=== PATIENT | female | born 1995 | race Caucasian/White ===

== ENCOUNTER → 2017-08-27 | Outpatient (CLI) | payer BC ==
[2017-08-27 19:37] LABS: BASO % 0.3 % (0.0-1.0); EOS # 0.1 10^3/uL (0.0-0.50); EOS % 1.1 % (0.0-3.0); IMMATURE GRANULOCYTE % 0.2 % (0-0); LYMPH # 1.6 10^3/uL (1.5-6.5); LYMPH % 17.8 % (24.0-44.0); MEAN CORPUSCULAR HEMOGLOBIN 29.4 pg (27.0-33.0); MEAN CORPUSCULAR HGB CONC 33.4 g/dl (32.0-36.5); MEAN CORPUSCULAR VOLUME 87.9 fl (80.0-96.0); MONO # 0.8 10^3/uL (0.0-0.8); MONO % 9.3 % (0.0-5.0); NEUTROPHILS # 6.3 10^3/uL (1.8-7.7); NEUTROPHILS % 71.3 % (36.0-66.0); PLATELET COUNT, AUTOMATED 281 10^3/uL (150-450); WHITE BLOOD COUNT 8.9 10^3/uL (4.0-10.0)
== END ==
LOC: M WUC 18:06
PROVIDERS: ATTEND Physician Assistant
DX: J02.9 Acute pharyngitis, unspecified (principal); R53.83 Other fatigue

== ENCOUNTER → 2017-10-31 | Outpatient (CLI) | payer BC ==
[~2017-10-31] MED LIST: NITR100C2 PO; PROM25TA PO; REGL10TA6 PO
[2017-10-31 18:00] LABS: BASO % 0.2 % (0.0-1.0); EOS % 0.1 % (0.0-3.0); IMMATURE GRANULOCYTE % 0.2 % (0-0); LYMPH % 10.9 % (24.0-44.0); MEAN CORPUSCULAR HEMOGLOBIN 30.2 pg (27.0-33.0); MEAN CORPUSCULAR HGB CONC 34.3 g/dl (32.0-36.5); MONO # 0.5 10^3/uL (0.0-0.8); NEUTROPHILS # 7.5 10^3/uL (1.8-7.7); NEUTROPHILS % 82.6 % (36.0-66.0); PLATELET COUNT, AUTOMATED 317 10^3/uL (150-450); RED CELL DISTRIBUTION WIDTH 11.9 % (11.5-14.5)
[2017-11-02 10:28] LABS: HBsAg Prenatal NEGATIVE (NEGATIVE)
== END ==
LOC: M SMT 14:08
PROVIDERS: ATTEND Advanced Practice Midwife
DX: Z34.81 Encounter for supervision of other normal pregnancy, first trimester (principal); Z3A.09 9 weeks gestation of pregnancy

== ENCOUNTER 2017-11-04 10:41 | Emergency (ER) | payer BC, OTHER ==
[~2017-11-04] VITALS: Ht 175.3 cm; Wt 88.6 kg
[2017-11-04] MEDS ORDERED: PROM25TA PO (10:51)
[2017-11-04] MEDS ORDERED: MULTIVITAMIN -ADULT INJECTION 10 ML, THIAMINE INJection 100 MG, FOLIC ACID 1 MG in NS 1... IV ONE (11:00)
[2017-11-04] MEDS ORDERED: NITR100C2 PO (13:16)
[2017-11-04] MEDS ORDERED: REGL10TA6 PO (13:16)
[2017-11-04 13:31] VITALS: BP 127/65
== END 2017-11-04 13:38 | disposition home or self-care (01) ==
LOC: M ED 10:41
DX: O23.40 Unspecified infection of urinary tract in pregnancy, unspecified trimester (principal); Z3A.00 Weeks of gestation of pregnancy not specified
CPT/HCPCS: 81001; 99284; J3411

== ENCOUNTER → 2017-11-29 | Outpatient (REF) | payer BC, OTHER | LOC: M LAB REF 14:04 | DX: Z34.82 Encounter for supervision of other normal pregnancy, second trimester (principal) | CPT/HCPCS: 87186 ==

== ENCOUNTER → 2017-12-28 | Outpatient (REF) | payer BC, OTHER | LOC: M LAB REF 12:55 | DX: Z34.82 Encounter for supervision of other normal pregnancy, second trimester (principal); Z36.89 Encounter for other specified antenatal screening | CPT/HCPCS: 87186 ==

== ENCOUNTER → 2018-01-07 | Outpatient (CLI) | payer BC, OTHER | LOC: M RAD 07:26 | DX: Z34.80 Encounter for supervision of other normal pregnancy, unspecified trimester (principal) ==

== ENCOUNTER → 2018-01-28 | Outpatient (REF) | payer OTHER | LOC: M LAB REF 16:58 | DX: Z34.82 Encounter for supervision of other normal pregnancy, second trimester (principal) ==

== ENCOUNTER → 2018-05-08 | Outpatient (REF) | payer OTHER | LOC: M LAB REF 13:05 | DX: Z34.83 Encounter for supervision of other normal pregnancy, third trimester (principal) ==

== ENCOUNTER 2018-05-31 15:43 | Inpatient (IN) | payer OTHER ==
[2018-05-31 16:52] LABS: HEMATOCRIT 36.2 % (36.0-47.0); HEMOGLOBIN 12.6 g/dl (12.0-15.5); MEAN CORPUSCULAR HEMOGLOBIN 29.4 pg (27.0-33.0); MEAN CORPUSCULAR HGB CONC 34.8 g/dl (32.0-36.5); MEAN CORPUSCULAR VOLUME 84.4 fl (80.0-96.0); PLATELET COUNT, AUTOMATED 264 10^3/uL (150-450); RED BLOOD COUNT 4.29 10^6/uL (4.00-5.40); RED CELL DISTRIBUTION WIDTH 12.3 % (11.5-14.5); WHITE BLOOD COUNT 10.1 10^3/uL (4.0-10.0)
[2018-05-31] MEDS: miSOPROStol 50 MCG 1/2 TAB (S0191) SL ×2 (16:55→21:06)
[2018-05-31 17:16] LABS: ALT/SGPT 16 U/L (12-78); AST/SGOT 13 U/L (7-37); BILIRUBIN,TOTAL 0.5 MG/DL (0.2-1.0); CREATININE FOR GFR 0.63 MG/DL (0.55-1.30); GLOMERULAR FILTRATION RATE > 60.0 (>60); LDH LACTATE DEHYDROGENASE 150 U/L (84-246); URIC ACID 5.7 MG/DL (2.6-6.0)
[2018-06-01] MEDS: miSOPROStol 50 MCG 1/2 TAB (S0191) SL ×2 (01:05→05:00)
[2018-06-01] MEDS ORDERED: PROMETHAZINE INJ 25 MG/ML VIAL (J2550) IM (11:30)
[2018-06-01] MEDS: BUTORPHANOL 2 MG/ML INJ (J0595) IV (11:55)
[2018-06-01] MEDS: LR 1,000 ML IV ×2 (11:56→19:22)
[2018-06-01] MEDS: OXYTOCIN DRIP 30 UNITS in APPROPRIATE DILUENT 1 EA IV (11:56)
[2018-06-01] MEDS: PROMETHAZINE INJ 25 MG/ML VIAL (J2550) IV (12:24)
[2018-06-01] MEDS ORDERED: FENTANYL 2MCG/ML ROPIVACAINE 0.2% IN 0.9% NACL 200ML IVBAG As Ordered (14:25)
[2018-06-01] MEDS ORDERED: PENICILLIN G POTASSIUM 5 MU VIAL As Ordered (14:28)
[2018-06-01] MEDS: PENICILLIN G POTASSIUM IV 5 MU in D5W MINI-BAG PLUS 100 ML IV (14:30)
[2018-06-01] MEDS ORDERED: ONDANSETRON 4MG/2ML VIAL (J2405) IV (14:55)
[2018-06-01] MEDS ORDERED: EPIDURAL COMMENT XX (14:55)
[2018-06-01] MEDS ORDERED: EPIDURAL/PCA KEYS XX (14:55)
[2018-06-01] MEDS ORDERED: NALOXONE INJ 0.4 MG/1 ML VIAL (J2310) IV (14:55)
[2018-06-01] MEDS ORDERED: REFRIGERATOR IV KEYS XX (14:55)
[2018-06-01] MEDS ORDERED: LACTATED RINGER'S 1000 ML IV (14:55)
[2018-06-01] MEDS: FENTANYL/ROPIVACAINE/NACL BAG 200 ML EPIDURAL (14:55)
[2018-06-01] MEDS ORDERED: ePHEDrine SULFATE 25 MG/5 ML(5MG/ML) SYRINGE IV (14:55)
[2018-06-01] MEDS ORDERED: diphenhydrAMINE INJ 50MG/ML VIAL (J1200) IV (14:55)
[2018-06-01] MEDS: PENICILLIN G POTASSIUM IV 2.5 MU in D5W 100 ML IV (18:42)
[2018-06-01] MEDS: PENICILLIN G POTASSIUM IV 2.5 MU in APPROPRIATE DILUENT 1 EA IV (22:46)
[2018-06-02] MEDS: PENICILLIN G POTASSIUM IV 2.5 MU in APPROPRIATE DILUENT 1 EA IV (02:45)
[2018-06-02] MEDS: LR 1,000 ML IV (03:22)
[2018-06-02] MEDS ORDERED: RHOGAM 300 MCG (1500 IU) INJ (J2790) IM (04:30)
[2018-06-02] MEDS ORDERED: DOCUSATE SODIUM 100 MG CAP PO (04:30)
[2018-06-02] MEDS: OXYTOCIN DRIP 30 UNITS in APPROPRIATE DILUENT 1 EA IV (04:30)
[2018-06-02] MEDS ORDERED: METHYLERGONOVINE MALEATE 0.2 MG TAB PO (04:30)
[2018-06-02] MEDS ORDERED: DIBUCAINE 1% OINTMENT 30GM TOP (04:30)
[2018-06-02] MEDS ORDERED: MEASLES,MUMPS,RUBELLA VACCINE INJ (MMR-II) (90707) SC (04:30)
[2018-06-02] MEDS: PRENATAL VITAMINS CHEWABLE TABLET PO (08:19)
[2018-06-02] MEDS: ACETAMINOPHEN 500 MG TAB PO (11:27)
[2018-06-02] MEDS: IBUPROFEN 800 MG TAB PO (20:32)
[2018-06-03] MEDS: PRENATAL VITAMINS CHEWABLE TABLET PO (09:17)
[2018-06-03] MEDS: ACETAMINOPHEN 500 MG TAB PO (09:17)
== END 2018-06-03 10:25 | disposition home or self-care (01) | DRG 775 ==
LOC: M LDI 15:43 → M OBS 06-02 06:15
PROC: 10D07Z6 Extraction of Products of Conception, Vacuum, Via Natural or Artificial Opening (ICD-10-PCS; principal; 2018-05-31)
PROC: 3E0P7GC Introduction of Other Therapeutic Substance into Female Reproductive, Via Natural or Artificial Opening (ICD-10-PCS; 2018-05-31)
DX: O13.4 Gestational [pregnancy-induced] hypertension without significant proteinuria, complicating childbirth (principal); O99.824 Streptococcus B carrier state complicating childbirth; Z3A.39 39 weeks gestation of pregnancy; O66.8 Other specified obstructed labor; O69.82X0 Labor and delivery complicated by other cord entanglement, without compression, not applicable or unspecified; O32.4XX0 Maternal care for high head at term, not applicable or unspecified; Z37.0 Single live birth

== ENCOUNTER → 2018-09-07 | Outpatient (REF) | payer OTHER | LOC: M LAB REF 17:12 | DX: J02.9 Acute pharyngitis, unspecified (principal) | CPT/HCPCS: 87070 ==

== ENCOUNTER 2022-02-12 15:00 | Emergency (ER) | payer OTHER ==
[~2022-02-12] VITALS: Ht 175.3 cm; Wt 111.1 kg
[~2022-02-12 15:00] MED LIST changes: +IBUP-1114 PO; +MAPA500T2 PO; +PRENTAB9 PO; -PROM25TA PO; +PROM25TA12 PO
[2022-02-12 16:14] LABS: BASO % 0.3 % (0.0-1.0); EOS % 0.4 % (0.0-3.0); HEMATOCRIT 36.9 % (36.0-47.0); HEMOGLOBIN 12.5 g/dl (12.0-15.5); LYMPH # 1.4 10^3/uL (1.5-5.0); LYMPH % 14.4 % (24.0-44.0); MEAN CORPUSCULAR HEMOGLOBIN 28.8 pg (27.0-33.0); MEAN CORPUSCULAR HGB CONC 33.9 g/dl (32.0-36.5); MONO # 0.5 10^3/uL (0.0-0.8); MONO % 5.1 % (2.0-8.0); NEUTROPHILS # 7.8 10^3/uL (1.5-8.5); NEUTROPHILS % 79.6 % (36.0-66.0); PLATELET COUNT, AUTOMATED 307 10^3/uL (150-450); RED BLOOD COUNT 4.34 10^6/uL (4.00-5.40); WHITE BLOOD COUNT 9.8 10^3/uL (4.0-10.0)
[2022-02-12 16:53] LABS: BLOOD UREA NITROGEN 18 MG/DL (7-18); CALCIUM LEVEL 9.3 MG/DL (8.5-10.1); CARBON DIOXIDE LEVEL 25 MEQ/L (21-32); CHLORIDE LEVEL 106 MEQ/L (98-107); CREATININE FOR GFR 0.58 MG/DL (0.55-1.30); GLOMERULAR FILTRATION RATE > 60.0 (>60); GLUCOSE, FASTING 99 MG/DL (70-100); HCG, SERUM QUANTITATIVE 29914 MIU/ML; POTASSIUM SERUM 3.7 MEQ/L (3.5-5.1); SODIUM LEVEL 138 MEQ/L (136-145)
[2022-02-12 19:10] VITALS: BP 131/67
== END 2022-02-12 19:11 | disposition home or self-care (01) ==
LOC: M ED 15:00
DX: O20.0 Threatened abortion (principal); R10.2 Pelvic and perineal pain; Z3A.09 9 weeks gestation of pregnancy

== ENCOUNTER 2022-04-23 21:06 | Emergency (ER) | payer OTHER ==
[~2022-04-23] VITALS: Ht 175.3 cm; Wt 108.5 kg
[2022-04-23 21:08] VITALS: BP 136/74
[2022-04-23] MEDS ORDERED: ACET-683 PO (21:16)
[2022-04-23 22:30] LABS: BASO % 0.2 % (0.0-1.0); EOS % 0.2 % (0.0-3.0); HEMATOCRIT 38.7 % (36.0-47.0); HEMOGLOBIN 12.8 g/dl (12.0-15.5); LYMPH # 0.9 10^3/uL (1.5-5.0); LYMPH % 5.3 % (24.0-44.0); MEAN CORPUSCULAR HEMOGLOBIN 28.6 pg (27.0-33.0); MEAN CORPUSCULAR HGB CONC 33.1 g/dl (32.0-36.5); MEAN CORPUSCULAR VOLUME 86.4 fl (80.0-96.0); MONO # 0.7 10^3/uL (0.0-0.8); MONO % 4.4 % (2.0-8.0); NEUTROPHILS % 89.6 % (36.0-66.0); PLATELET COUNT, AUTOMATED 314 10^3/uL (150-450); RED BLOOD COUNT 4.48 10^6/uL (4.00-5.40); WHITE BLOOD COUNT 16.7 10^3/uL (4.0-10.0)
[2022-04-23 22:54] LABS: BLOOD UREA NITROGEN 16 MG/DL (7-18); CALCIUM LEVEL 9.2 MG/DL (8.5-10.1); CARBON DIOXIDE LEVEL 27 MEQ/L (21-32); CHLORIDE LEVEL 106 MEQ/L (98-107); GLOMERULAR FILTRATION RATE > 60.0 (>60); GLUCOSE, FASTING 102 MG/DL (70-100); HCG, SERUM QUANTITATIVE < 1.0 MIU/ML; POTASSIUM SERUM 4.1 MEQ/L (3.5-5.1); SODIUM LEVEL 138 MEQ/L (136-145)
== END 2022-04-24 03:12 | disposition left against medical advice (07) ==
LOC: M ED 21:06
DX: Z53.21 Procedure and treatment not carried out due to patient leaving prior to being seen by health care provider (principal)

== ENCOUNTER 2024-12-23 18:52 | Emergency (ER) | payer OTHER ==
[~2024-12-23] VITALS: Ht 175.3 cm; Wt 114.9 kg
[~2024-12-23 18:52] MED LIST changes: +ACET-683 PO
[2024-12-23] MEDS ORDERED: VYVA1CAP PO (19:01)
[2024-12-23] MEDS ORDERED: IBUP200C25 PO (19:01)
[2024-12-23 19:22] LABS: BASO % 0.4 % (0.0-1.0); EOS # 0.1 10^3/uL (0.0-0.5); EOS % 1.8 % (0.0-3.0); HEMATOCRIT 36.7 % (36.0-47.0); HEMOGLOBIN 12.6 g/dl (12.0-15.5); LYMPH # 1.4 10^3/uL (1.5-5.0); LYMPH % 25.6 % (24.0-44.0); MEAN CORPUSCULAR HEMOGLOBIN 29.2 pg (27.0-33.0); MEAN CORPUSCULAR HGB CONC 34.3 g/dl (32.0-36.5); MONO # 0.6 10^3/uL (0.0-0.8); NEUTROPHILS # 3.5 10^3/uL (1.5-8.5); PLATELET COUNT, AUTOMATED 280 10^3/uL (150-450); RED BLOOD COUNT 4.32 10^6/uL (4.00-5.40); WHITE BLOOD COUNT 5.6 10^3/uL (4.0-10.0)
[2024-12-23 19:25] LABS: ERYTHROCYTE SEDIMENTATION RATE 23 mm/hr (0-20)
[2024-12-23 19:47] LABS: ALBUMIN 4.1 G/DL (3.2-5.2); ALKALINE PHOSPHATASE 71 U/L (35-104); ALT/SGPT 13 U/L (7.0-40); AST/SGOT 13 U/L (<34); BILIRUBIN,DIRECT 0.2 MG/DL (<0.4); BILIRUBIN,TOTAL 0.5 MG/DL (0.3-1.2); BLOOD UREA NITROGEN 27 MG/DL (9-23); C REACTIVE PROTEIN QUANTITATIV < 0.50 MG/DL (<1.0); CALCIUM LEVEL 9.8 MG/DL (8.5-10.1); CARBON DIOXIDE LEVEL 24 MMOL/L (20-31); CHLORIDE LEVEL 109 MMOL/L (98-107); CPK CREATINE PHOSPHOKINASE 79 U/L (34-145); CREATININE FOR GFR 0.54 MG/DL (0.55-1.30); GLOMERULAR FILTRATION RATE > 60.0 (>60); GLUCOSE, FASTING 92 MG/DL (60-100); MAGNESIUM LEVEL 1.9 MG/DL (1.8-2.4); POTASSIUM SERUM 3.8 MMOL/L (3.5-5.1); SODIUM LEVEL 142 MMOL/L (136-145); TOTAL PROTEIN 7.6 G/DL (5.7-8.2)
[2024-12-23 19:49] LABS: CK-MB VALUE MASS < 1.0 NG/ML (<3.6); MB/CK RELATIVE INDEX 1.26 (< OR =4)
[2024-12-23 19:50] LABS: HCG, SERUM QUALITATIVE NEGATIVE (NEGATIVE)
[2024-12-23] MEDS: MAG SULF 1GM/100ML (MAG RUN) 1 GM in IV 1 EA IV ONE (21:00)
[2024-12-23] MEDS: KETOROLAC 30 MG/ML 1ML VIAL IV ONE (21:08)
[2024-12-23] MEDS: METOCLOPRAMIDE INJ 10MG/2ML VIAL IV ONE (21:09)
[2024-12-23] MEDS: ACETAMINOPHEN *IV* 1,000 MG in IV 1 EA IV ONE (21:12)
[2024-12-23 22:15] VITALS: BP 135/71; TEMP 98; O2SAT 98
== END 2024-12-23 22:20 | disposition home or self-care (01) ==
LOC: M ED 18:52
DX: J09.X2 Influenza due to identified novel influenza A virus with other respiratory manifestations (principal); R51.9 Headache, unspecified; R07.9 Chest pain, unspecified; J45.909 Unspecified asthma, uncomplicated; F90.9 Attention-deficit hyperactivity disorder, unspecified type; Z79.1 Long term (current) use of non-steroidal anti-inflammatories (NSAID); Z79.899 Other long term (current) drug therapy
CPT/HCPCS: 70450; 71045; 72125; 80048; 80076; 82550; 82553; 83735; 84484; 84703; 85025; 85379; 85652; 86140; 87486; 87581; 87633; 87798; 93005; 96365; 96375; 99284; J0131; J1100; J1885; J2765